=== PATIENT | female | born 1995 | race Caucasian/White ===

== ENCOUNTER 2020-09-09 14:49 | Emergency (ER) | payer BC, OTHER ==
[~2020-09-09] VITALS: Ht 162.6 cm; Wt 74.6 kg
[~2020-09-09 14:49] MED LIST: OXYC1TAB14 PO; POLY119P4 PO
--- NOTE | 2020-09-09 15:46 | NUR ---
PT TOOK BENADRYL 25MG AND ZYRTEC LEARNING AND DEVELOPMENT CONSULTANT. PT STATES SX HAVE RESOLVED. PT CONNECTED TO MONITORING. CALL LIGHT IN REACH. FAMILY AT BEDSIDE.
[2020-09-09] MEDS ORDERED: DIPHENHYDRAMINE 25 MG CAPSULE PO ONE (16:00)
[2020-09-09] MEDS ORDERED: DIPHENHYDRAMINE 25 MG CAPSULE ONE (16:02)
--- NOTE | 2020-09-09 16:06 | NUR ---
MEDS ADMIN PER APR.
--- NOTE | 2020-09-09 16:29 | NUR ---
REPORT GIVEN TO ARAVIND AMAYA. TRANSFER OF CARE.
[2020-09-09 16:32] VITALS: BP 106/75
--- NOTE | 2020-09-09 16:33 | NUR ---
RECEIVED REPORT FROM JOSE LUIS SHULTZ. PT RESTING ON LIAMHORACIO. NADN. GEORGES.
== END 2020-09-09 16:45 | disposition home or self-care (01) ==
LOC: ED 16:41
DX: T78.3XXA Angioneurotic edema, initial encounter (principal)
CPT/HCPCS: 99283; J7512; Q0163